=== PATIENT | male | born 1960 | race Caucasian/White ===

== ENCOUNTER 2017-08-16 18:43 | Emergency (ER) | payer MEDICARE, SELFPAY ==
[2017-08-16 18:44] VITALS: BP 121/91; PULSE 77; RESP 22; TEMP 36.7; O2SAT 97; BMI 30.3
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
[2017-08-16 21:17] VITALS: BP 139/92; PULSE 73; RESP 17; O2SAT 97
--- NOTE | 2017-08-16 21:18 | ED.RN ---
DISCHARGE INSTRUCTIONS GIVEN TO AND REVIEWED WITH PATIENT, PATIENT DENIES QUESTIONS OR CONCERNS AND VOICES UNDERSTANDING OF DISCHARGE INSTRUCTIONS. PT AMBULATES OUT OF ROOM WITHOUT DIFFICULTY.
== END 2017-08-16 21:19 | disposition home or self-care (01) ==
LOC: ED 19:43
PROVIDERS: Emergency Provider Emergency Medicine; Family Provider Family Medicine; PCP Family Medicine
DX: S24.103A Unspecified injury at T7-T10 level of thoracic spinal cord, initial encounter (principal); S00.03XA Contusion of scalp, initial encounter; V43.52XA Car driver injured in collision with other type car in traffic accident, initial encounter; Y93.9 Activity, unspecified; Y92.9 Unspecified place or not applicable; Y99.9 Unspecified external cause status; Z79.899 Other long term (current) drug therapy
CPT/HCPCS: 70450; 72072; 72100; 72125; 99284